=== PATIENT | female | born 1985 | race Two or more races ===

== ENCOUNTER 2020-12-01 19:20 | Emergency (ER) | payer MEDICAID, OTHER ==
[~2020-12-01] VITALS: Ht 165.1 cm; Wt 63.5 kg
[2020-12-01] MEDS ORDERED: ALBUTEROL SULF 2.5 MG/0.5ML(0.5%) NEB SOLN NEB ONE (19:30)
[2020-12-01] MEDS ORDERED: IPRATROPIUM BROM 0.5 MG/2.5ML INH SOL NEB ONE (19:30)
[2020-12-01] MEDS ORDERED: AZIT1POW12 PO (23:08)
[2020-12-01] MEDS ORDERED: PRED20TA2 PO (23:08)
[2020-12-01] MEDS ORDERED: ALBU108A5 IN (23:08)
[2020-12-02 00:26] VITALS: BP 114/73
== END 2020-12-02 00:50 | disposition home or self-care (01) ==
LOC: ER 19:21 → EDBD 19:21 → ER 12-02 00:42
DX: J45.998 Other asthma (principal); Z20.822 Contact with and (suspected) exposure to COVID-19
CPT/HCPCS: 36415; 71045; 81025; 87426; 94640; 99284; J7644

== ENCOUNTER 2023-09-13 18:15 | Emergency (ER) | payer MEDICAID ==
[~2023-09-13] VITALS: Ht 165.1 cm; Wt 74.3 kg
[~2023-09-13 18:15] MED LIST: ALBU108A5 IN; AZIT1POW12 PO; PRED20TA2 PO
[2023-09-13] MEDS: SODIUM CHLORIDE 0.9% 1,000 ML IV ONE (19:16)
[2023-09-13] MEDS: methylPREDNISolone SOD SUCC 125 MG/2 ML VL IV ONE (19:28)
[2023-09-13] MEDS: diphenhdrAMINE HCL 50 MG/1 ML VL IV ONE (19:28)
[2023-09-13] MEDS: FAMOTIDINE (10MG/ML) 2ML VL IV ONE (19:40)
[2023-09-13 21:06] VITALS: BP 129/67; PULSE 65; RESP 16; TEMP 98.8; O2SAT 97
== END 2023-09-13 21:09 | disposition home or self-care (01) ==
LOC: ER 18:15
DX: L50.9 Urticaria, unspecified (principal); R06.02 Shortness of breath; Z79.899 Other long term (current) drug therapy; Z88.5 Allergy status to narcotic agent
CPT/HCPCS: 93005; 96361; 96374; 96375; 99284; J1200; J2919; J3490; J7030